=== PATIENT | male | born 1985 | race Hispanic/Latino ===

== ENCOUNTER 2016-11-04 23:11 | Inpatient (IN) | payer SELFPAY ==
[~2016-11-04] VITALS: Ht 167.6 cm; Wt 73.0 kg
[2016-11-04 23:59] LABS: URINE BILIRUBIN - DIPSTICK NEGATIVE (NEGATIVE); URINE BLOOD DIPSTICK TRACE-INTACT (NEGATIVE); URINE CLARITY CLEAR; URINE COLOR YELLOW; URINE GLUCOSE - DIPSTICK >=1000 mg/dL (NEGATIVE); URINE KETONE 40 mg/dL (NEGATIVE); URINE LEUK ESTERASE NEGATIVE (NEGATIVE); URINE NITRITE - DIPSTICK NEGATIVE (Negative); URINE PH 5.5 (4.5-8.0); URINE PROTEIN - DIPSTICK NEGATIVE (NEG-TRACE); URINE SPECIFIC GRAVITY <=1.005; URINE UROBILINOGEN - DIPSTICK 0.2 E.U./dL (0.2)
[2016-11-05] VITALS (30 sets, daily range): BP systolic 81–141; BP diastolic 39–81
[2016-11-05 00:36] LABS: HEMATOCRIT 44.3 % (39.0-50.0); HEMOGLOBIN 15.9 g/dl (14.0-18.0); IMMATURE GRANULOCYTES 1.1 % (0.0-1.0); MEAN CELL VOLUME 88.2 fL CALC (80.0-100.0); MEAN CORPUSCULAR HGB 31.7 pG CALC (26.0-32.0); MEAN CORPUSCULAR HGB CONC 35.9 g/L CALC (32.0-36.0); NEUT# 3.93 thou/uL (1.82-7.42); RED BLOOD COUNT 5.02 mill/uL (4.70-6.10); RED CELL DISTRI WIDTH 11.7 % (11.5-15.5)
[2016-11-05 01:00] LABS: ALBUMIN 4.6 g/dL (3.2-5.0); ALKALINE PHOSPHATASE 212 u/l (38-126); ANION GAP 24 (6-22 (CALC)); BILIRUBIN, TOTAL 0.8 mg/dL (0.0-1.4); BUN 11 mg/dL (9-20); BUN/CREATININE RATIO 15 (12-20 (CALC)); CALCIUM 9.7 mg/dL (8.4-10.2); CARBON DIOXIDE 17 mmol/l (22-30); CHLORIDE 96 mmol/l (95-108); CREATININE 0.7 mg/dL (0.7-1.3); GFR > 60 ML/MIN (>=60 (CALC)); GFR FOR AFR.AMER. > 60 ML/MIN (>=60 (CALC)); POTASSIUM 3.8 mmol/l (3.5-5.1); SGOT/AST 20 u/l (17-59); SGPT/ALT 40 u/l (21-72); SODIUM 132 mmol/l (137-146); TOTAL PROTEIN 7.7 g/dL (6.3-8.2)
[2016-11-05 01:09] LABS: GLUCOSE 596 mg/dL (75-110)
[2016-11-05 02:31] LABS: ANION GAP 20 (6-22 (CALC)); BUN 11 mg/dL (9-20); BUN/CREATININE RATIO 16 (12-20 (CALC)); CALCIUM 8.8 mg/dL (8.4-10.2); CARBON DIOXIDE 18 mmol/l (22-30); CHLORIDE 102 mmol/l (95-108); CREATININE 0.7 mg/dL (0.7-1.3); GFR > 60 ML/MIN (>=60 (CALC)); GFR FOR AFR.AMER. > 60 ML/MIN (>=60 (CALC)); GLUCOSE 336 mg/dL (75-110); POTASSIUM 3.4 mmol/l (3.5-5.1); SODIUM 136 mmol/l (137-146)
[2016-11-05 06:44] LABS: ANION GAP 17 (6-22 (CALC)); BUN 8 mg/dL (9-20); BUN/CREATININE RATIO 14 (12-20 (CALC)); CALCIUM 8.1 mg/dL (8.4-10.2); CARBON DIOXIDE 19 mmol/l (22-30); CHLORIDE 106 mmol/l (95-108); CREATININE 0.6 mg/dL (0.7-1.3); GFR > 60 ML/MIN (>=60 (CALC)); GFR FOR AFR.AMER. > 60 ML/MIN (>=60 (CALC)); GLUCOSE 199 mg/dL (75-110); POTASSIUM 3.3 mmol/l (3.5-5.1); SODIUM 139 mmol/l (137-146)
[2016-11-06 00:01] VITALS: BP 121/66
[2016-11-06 02:00] VITALS: BP 103/60
[2016-11-06 04:02] VITALS: BP 109/61
[2016-11-06 04:36] LABS: HEMATOCRIT 41.9 % (39.0-50.0); HEMOGLOBIN 14.8 g/dl (14.0-18.0); IMMATURE GRANULOCYTES 1.6 % (0.0-1.0); MEAN CELL VOLUME 88.4 fL CALC (80.0-100.0); MEAN CORPUSCULAR HGB 31.2 pG CALC (26.0-32.0); MEAN CORPUSCULAR HGB CONC 35.3 g/L CALC (32.0-36.0); NEUT# 2.91 thou/uL (1.82-7.42); RED BLOOD COUNT 4.74 mill/uL (4.70-6.10); RED CELL DISTRI WIDTH 11.9 % (11.5-15.5)
[2016-11-06 04:50] LABS: ANION GAP 17 (6-22 (CALC)); BUN 10 mg/dL (9-20); BUN/CREATININE RATIO 17 (12-20 (CALC)); CALCIUM 9.5 mg/dL (8.4-10.2); CARBON DIOXIDE 20 mmol/l (22-30); CHLORIDE 104 mmol/l (95-108); CREATININE 0.6 mg/dL (0.7-1.3); GFR > 60 ML/MIN (>=60 (CALC)); GFR FOR AFR.AMER. > 60 ML/MIN (>=60 (CALC)); GLUCOSE 216 mg/dL (75-110); POTASSIUM 3.8 mmol/l (3.5-5.1); SODIUM 138 mmol/l (137-146)
[2016-11-06 06:03] VITALS: BP 93/63
[2016-11-06 08:00] VITALS: BP 124/79
[2016-11-06] MEDS ORDERED: DIFLUCAN100 MG PO (09:49)
[2016-11-06] MEDS ORDERED: BENADRYL25 M1 PO (09:49)
[2016-11-06] MEDS ORDERED: LANCET MICRO XX (09:49)
[2016-11-06] MEDS ORDERED: NOVOLIN 70/30 SC (09:49)
== END 2016-11-06 12:45 | disposition home or self-care (01) | DRG 638 ==
LOC: ENPENDDIS → ED 23:11 → ED-I 11-05 01:45 → ED 11-05 03:24 → ED-I 11-05 03:25 → ICU 11-05 03:25
PROVIDERS: Emergency Medicine; ADMIT Internal Medicine; ATTEND Internal Medicine
DX: E10.10 Type 1 diabetes mellitus with ketoacidosis without coma (principal); B37.49 Other urogenital candidiasis